=== PATIENT | male | born 1960 ===

== ENCOUNTER 2021-09-12 17:59 | Inpatient (IN) | payer OTHER ==
[~2021-09-12] VITALS: Ht 182.9 cm; Wt 61.7 kg
[2021-09-12 19:09] LABS: BASOPHILS ABSOLUTE AUTO 0.06 K/mm3 (0.00-0.23); BASOPHILS PERCENT AUTO 1 % (0-2); EOSINOPHILS ABSOLUTE AUTO 0.22 K/mm3 (0.00-0.68); EOSINOPHILS PERCENT AUTO 2 % (0-6); Hematocrit 34.2 % (37.0-53.0); Hemoglobin 11.4 g/dL (13.5-17.5); IMMATURE GRAN ABSOLUTE AUTO 0.02 K/mm3 (0.00-0.10); IMMATURE GRAN PERCENT AUTO 0 % (0-1); LYMPHOCYTES ABSOLUTE AUTO 1.96 K/mm3 (0.84-5.20); LYMPHOCYTES PERCENT AUTO 21 % (21-46); MONOCYTES ABSOLUTE AUTO 0.98 K/mm3 (0.16-1.47); MONOCYTES PERCENT AUTO 11 % (4-13); Mean Corpuscular HGB Conc 33.3 g/dL (31.5-36.5); Mean Corpuscular Volume 93 fL (80-100); Mean Platelet Volume 11.2 fL (9.1-12.4); NEUTROPHILS ABSOLUTE AUTO 6.12 K/mm3 (1.96-9.15); NEUTROPHILS PERCENT AUTO 65 % (41-73); Platelet Count 190 K/mm3 (150-400); RDW Coefficient Variation 12.7 % (11.7-14.2); RDW Standard Deviation 43.1 fL (35.1-46.3); Red Blood Cell Count 3.68 M/mm3 (4.30-5.90); White Blood Cell Count 9.36 K/mm3 (4.00-11.30)
[2021-09-12 19:37] LABS: Albumin, Blood 3.2 g/dL (3.4-5.0); Albumin/Globulin Ratio 0.9 (0.8-1.8); Bilirubin, Total 0.2 mg/dL (0.1-1.0); Bun/Creatinine Ratio 15.9 (12.0-20.0); Calcium, Blood 8.4 mg/dL (8.5-10.1); Creatinine, Blood 3.72 mg/dL (0.60-1.20); Globulin, Blood 3.4 g/dL (2.2-4.0); Potassium, Blood 4.1 mmol/L (3.5-5.5); Total Protein, Blood 6.6 g/dL (6.4-8.2)
[2021-09-12 21:19] LABS: U Amphetamine Screen DETECTED; U Barbituate Screen Not Detected; U Benzodiazapine Screen Not Detected; U Buprenorphine Screen Not Detected; U Cannabinoids Screen DETECTED; U Cocaine Screen Not Detected; U Methadone Screen Not Detected; U Methamphetamine Screen Not Detected; U Opiates Screen Not Detected; U Oxycodone Screen Not Detected; U Phencyclidine Screen Not Detected; U Propoxyphene Screen Not Detected
[2021-09-12] MEDS ORDERED: Toprol Xl50 MG PO (21:57)
[2021-09-12] MEDS ORDERED: Norvasc5 MG PO (21:57)
[2021-09-12 23:52] LABS: Influenza A, PCR NEGATIVE (NEGATIVE); Influenza B, PCR NEGATIVE (NEGATIVE); Resp Syncytial Virus, PCR NEGATIVE (NEGATIVE); SARS-Cov-2 (COVID-19) PCR, MMC NEGATIVE (NEGATIVE)
[2021-09-13 03:54] LABS: BASOPHILS ABSOLUTE AUTO 0.05 K/mm3 (0.00-0.23); BASOPHILS PERCENT AUTO 1 % (0-2); EOSINOPHILS ABSOLUTE AUTO 0.06 K/mm3 (0.00-0.68); EOSINOPHILS PERCENT AUTO 1 % (0-6); Hematocrit 35.1 % (37.0-53.0); Hemoglobin 11.7 g/dL (13.5-17.5); IMMATURE GRAN ABSOLUTE AUTO 0.03 K/mm3 (0.00-0.10); IMMATURE GRAN PERCENT AUTO 0 % (0-1); LYMPHOCYTES ABSOLUTE AUTO 0.99 K/mm3 (0.84-5.20); LYMPHOCYTES PERCENT AUTO 9 % (21-46); MONOCYTES ABSOLUTE AUTO 0.63 K/mm3 (0.16-1.47); MONOCYTES PERCENT AUTO 6 % (4-13); Mean Corpuscular HGB 30.3 pg (26.0-34.0); Mean Corpuscular HGB Conc 33.3 g/dL (31.5-36.5); Mean Corpuscular Volume 91 fL (80-100); Mean Platelet Volume 10.9 fL (9.1-12.4); NEUTROPHILS ABSOLUTE AUTO 8.88 K/mm3 (1.96-9.15); NEUTROPHILS PERCENT AUTO 83 % (41-73); Platelet Count 181 K/mm3 (150-400); RDW Coefficient Variation 12.8 % (11.7-14.2); RDW Standard Deviation 42.4 fL (35.1-46.3); Red Blood Cell Count 3.86 M/mm3 (4.30-5.90); White Blood Cell Count 10.64 K/mm3 (4.00-11.30)
[2021-09-13 04:16] LABS: Albumin, Blood 3.3 g/dL (3.4-5.0); Albumin/Globulin Ratio 0.8 (0.8-1.8); Bilirubin, Total 0.4 mg/dL (0.1-1.0); Bun/Creatinine Ratio 16.2 (12.0-20.0); Calcium, Blood 8.9 mg/dL (8.5-10.1); Creatinine, Blood 3.4 mg/dL (0.60-1.20); Globulin, Blood 4.1 g/dL (2.2-4.0); Potassium, Blood 3.7 mmol/L (3.5-5.5); Total Protein, Blood 7.4 g/dL (6.4-8.2)
--- NOTE | 2021-09-13 05:50 | NUR ---
SHIFT SUMMARY: NO ACUTE OVERNIGHT EVENT. PT ARRIVED FROM ED AROUND 0000 AND IS DROWSY BUT ALERT AND ORIENTED. HE IS ON RA AND HAD A TMAX OF 99.2 TEMPORALLY. HR HAS BEEN 80-90'S AND SBP IN 155-170. NICARDIPINE GTT INFUSING AT 5MG/ML AND NS AT 75ML/HR. HE USES THE BEDSIDE URINAL W/ GOOD OUTPUT OF CLEAR, YELLOW URINE. HE HAS REMAINED NPO AND HAD NO BM OVERNIGHT. SKIN IS WARM, DRY, AND INTACT W/ SCDS TO BLE. PLAN FOR THIS MORNING IS FOR A FOLLOW UP HEAD CT AND RENAL US. WILL REPORT TO ONCOMING RN WHEN AVAILABLE.
--- NOTE | 2021-09-13 07:57 | NUR ---
PATIENT SLEEPING, WAKES EASILY AND THEN BACK TO SLEEP, ECHO DONE, RESIDENT ROUNDED, REPORTED NO SCHEDULED MEDICATIONS ORDERED FOR HIM YET, VSS, NICARDIPINE INFUSING, TO HAVE A REPEAT CT TODAY AND RENAL US, BED ALARM ON, NO DISTRESS, CALL LIGHT WITH IN REACH
--- NOTE | 2021-09-13 08:17 | NUR ---
DR SMALL ROUNDED, CLARIFIED NEURO CHECK FREQUENCY TO EVERY 4 HOURS, RESDIENT IN WITH PATIENT
--- NOTE | 2021-09-13 09:11 | NUR ---
DR GRANGER ROUNDING ON PATIENT NOW, ECHO BEING STARTED IN ROOM, REPORTED TO DR GRANGER IF THERE WILL BE A POSSIBLE REPEAT HEAD CT, MEDICATIONS, AND CHRONIC METH USE
--- NOTE | 2021-09-13 10:31 | NUR ---
SPEECH THERAPY IN ROOM NOW
[2021-09-13 11:05] LABS: Prothrombin Time Results 10.5 Sec (9.7-11.5)
[2021-09-13 11:17] LABS: CPK Creatine Kinase 137 U/L (39-308)
--- NOTE | 2021-09-13 13:59 | NUR ---
Call placed to Dr Diceky to clarify order to DC nicardipine as pt is still receiving nicardipine at 5 mg/hr and this is maintining SBP 155-165 mmHg
[2021-09-13 14:37] LABS: Source, Urine Clean Catch
[2021-09-13 14:50] LABS: Bun/Creatinine Ratio 15.8 (12.0-20.0); Calcium, Blood 8.5 mg/dL (8.5-10.1); Creatinine, Blood 3.16 mg/dL (0.60-1.20); Potassium, Blood 3.9 mmol/L (3.5-5.5)
--- NOTE | 2021-09-13 14:50 | NUR ---
1433 DR GRANGER D/C THE NICARDIPINE, PATIENT MEDICATED WITH NORVASC 10MG EARLIER, REPORTED PATIENT ALSO TAKES METOPROLOL, BP 158/90, 97%, 79 HEART RATE, 17 RESPS, DR GRANGER TO ORDER TOPROLOL XL FROM PATIENTS HOME MEDICATION LIST
[2021-09-13 16:21] LABS: Appearance, Urine Clear (Clear); Bilirubin, Urine Neg (Neg); Blood, Urine 4+ (Neg); Glucose Qualitative, Urine Neg (Neg); Ketones, Urine Neg (Neg); Leukocyte Esterase, Urine Neg (Neg); Nitrite, Urine Neg (Neg); Protein, Urine 3+ (Neg); Specific Gravity, Urine 1.015 (1.003-1.022); Urobilinogen, Urine NORM (Normal)
[2021-09-13 16:42] LABS: Color, Urine Pale Yellow (P-Yellow)
[2021-09-13 16:43] LABS: Bacteria Rare /hpf; Squamous Epithelial Cells Rare /hpf (Few); White Blood Cells, Urine 0-2 /hpf (0-5)
--- NOTE | 2021-09-13 17:40 | NUR ---
FRIEND LIA IN ROOM VISITING
--- NOTE | 2021-09-13 18:03 | NUR ---
MAKES NEEDS KNOWN, ALERT AND OREINTED X4, FORGETFUL AT TIMES, EASILY ORIENTED, CALL LIGHT WITH IN REACH, BED ALARM ON, COARSE LS CLEARED WITH COUGH, CLEAR THROUGHOUT, RA 95%, DENEIS SOB. CHRONIC HTN, DOES NOT TAKE HOME BP MEDS, NICARDIPINE AT 5MG/HR, HEART RATE 80-110, SBP 130-211, MEDICATED WITH TOPROLOL XL AND NORVASC 10 MG,DENIES CP. PATIENT REPORTS NOT HAVING A BM FOR 10 DAYS, MEDICATED WITH MIRALAX AND SENNA. BSU CLEAR YELLOW URINE, FREQUENT AND 150 ML AT A TIME. SKIN POOR TUGOR, TENTING, VERY FRAGILE SKIN. SWALLOW PRECATIONS, CALL LIGHT WITH IN REACH, WILL RELAY TO PM RN, WCTM
--- NOTE | 2021-09-13 19:00 | NUR ---
ASSUME CARE: PT ALERT, ORIENTED, AND FOLLOWS COMMANDS. HE DENIES PAIN AND TEMP IS 99.9. HE IS ON RA AND VITALS ARE WNL W/ SBP RUNNING AROUND 150-160. NICARDIPINE INFUSING AT 5MG/HR. HE USES THE BEDSIDE URINAL W/ GOOD OUTPUT OF CLEAR YELLOW URINE. SKIN IS WARM, DRY, AND INTACT. SCDS APPLIED TO BLE. SEE SHIFT ASSESSMENT FOR DETAILS.
[2021-09-14 03:44] LABS: BASOPHILS ABSOLUTE AUTO 0.07 K/mm3 (0.00-0.23); BASOPHILS PERCENT AUTO 1 % (0-2); EOSINOPHILS ABSOLUTE AUTO 0.21 K/mm3 (0.00-0.68); EOSINOPHILS PERCENT AUTO 2 % (0-6); Hematocrit 32.6 % (37.0-53.0); Hemoglobin 10.8 g/dL (13.5-17.5); IMMATURE GRAN ABSOLUTE AUTO 0.01 K/mm3 (0.00-0.10); IMMATURE GRAN PERCENT AUTO 0 % (0-1); LYMPHOCYTES ABSOLUTE AUTO 2.16 K/mm3 (0.84-5.20); LYMPHOCYTES PERCENT AUTO 25 % (21-46); MONOCYTES ABSOLUTE AUTO 0.86 K/mm3 (0.16-1.47); MONOCYTES PERCENT AUTO 10 % (4-13); Mean Corpuscular HGB 30.5 pg (26.0-34.0); Mean Corpuscular HGB Conc 33.1 g/dL (31.5-36.5); Mean Corpuscular Volume 92 fL (80-100); Mean Platelet Volume 10.6 fL (9.1-12.4); NEUTROPHILS ABSOLUTE AUTO 5.33 K/mm3 (1.96-9.15); NEUTROPHILS PERCENT AUTO 62 % (41-73); Platelet Count 181 K/mm3 (150-400); RDW Coefficient Variation 12.9 % (11.7-14.2); Red Blood Cell Count 3.54 M/mm3 (4.30-5.90); White Blood Cell Count 8.64 K/mm3 (4.00-11.30)
[2021-09-14 04:04] LABS: Calcium, Blood 8.3 mg/dL (8.5-10.1); Creatinine, Blood 3.27 mg/dL (0.60-1.20); Phosphorus, Blood 5.2 mg/dL (2.5-4.9); Potassium, Blood 3.9 mmol/L (3.5-5.5)
--- NOTE | 2021-09-14 05:38 | NUR ---
SHIFT SUMMARY: NO ACUTE OVERNIGHT EVENTS. PT IS RESTING QUIETLY BUT IS EASILY AROUSABLE. HE HAS REMAINED ALERT AND ORIENTED W/ NO COMPLAINTS OF PAIN. ON RA HE IS SATING >95%, HR 70'S AND SBP 155-165. NICARDIPINE CURRENTLY ON STANDBY. TMAX 99.9. HE DRANK 2 ENSURE CLEARS AND HAD NO BM OVERNIGHT. SKIN IS WARM, DRY, AND INTACT. WILL REPORT TO ONCOMING RN WHEN AVAILABLE.
--- NOTE | 2021-09-14 07:23 | NUR ---
PATIENT AWAKE, COOPERATIVE, CALL LIGHT WITH IN REACH, WAITING FOR BREAKFAST, NO DISTRESS, PLEASANT TO CARE, WCTM
--- NOTE | 2021-09-14 08:40 | NUR ---
DR SMALL ROUNDED ON PATIENT, REPORTED BUN, CREATINIE, AND GFR. UNABLE TO GET A SPUTMN CULTURE YET, OFF NICARDIPINE SINCE 0530 AM, GAVE NEW ORDER COREG AND WILL RE-EVAL IN 2 HOURS FOR CHANGE OF STATUS, CALL LIGHT WITH IN REACH
--- NOTE | 2021-09-14 17:06 | NUR ---
ALERT AND ORIENTED X4, FORGETFUL AT TIMES, PLEASANT TO CARE, LS CLEAR AND DIMINISHED, CLEARS CONGESTION WITH COUGH, SATS 95% ON RA. SBP 150-190S, HTN MEDICATIONS INCREASED, NICARDIPINE GTT OFF SINCE 0530 AM, DENIES CHEST PAIN OR DIZZYNESS, DR SMALL AND DR GRANGER AWARE. BSU, CLEAR YELLOW, 150-200 AT A TIME. SKIN FRAGILE, POOR TURGOR, ATE ALL MEALS, NO SWALLOWING DIFFICULTIES. CHANGED TO M/S STATUS WITH TELE TODAY, WILL RELAY TO PM RN, [place]
[2021-09-15 04:01] LABS: BASOPHILS ABSOLUTE AUTO 0.07 K/mm3 (0.00-0.23); BASOPHILS PERCENT AUTO 1 % (0-2); EOSINOPHILS ABSOLUTE AUTO 0.28 K/mm3 (0.00-0.68); EOSINOPHILS PERCENT AUTO 3 % (0-6); Hemoglobin 10.5 g/dL (13.5-17.5); IMMATURE GRAN ABSOLUTE AUTO 0.01 K/mm3 (0.00-0.10); IMMATURE GRAN PERCENT AUTO 0 % (0-1); LYMPHOCYTES ABSOLUTE AUTO 1.99 K/mm3 (0.84-5.20); LYMPHOCYTES PERCENT AUTO 23 % (21-46); MONOCYTES ABSOLUTE AUTO 0.93 K/mm3 (0.16-1.47); MONOCYTES PERCENT AUTO 11 % (4-13); Mean Corpuscular HGB 30.8 pg (26.0-34.0); Mean Corpuscular HGB Conc 32.8 g/dL (31.5-36.5); Mean Corpuscular Volume 94 fL (80-100); Mean Platelet Volume 10.6 fL (9.1-12.4); NEUTROPHILS ABSOLUTE AUTO 5.56 K/mm3 (1.96-9.15); NEUTROPHILS PERCENT AUTO 63 % (41-73); Platelet Count 201 K/mm3 (150-400); RDW Standard Deviation 44.8 fL (35.1-46.3); Red Blood Cell Count 3.41 M/mm3 (4.30-5.90); White Blood Cell Count 8.84 K/mm3 (4.00-11.30)
[2021-09-15 04:57] LABS: Bun/Creatinine Ratio 18.9 (12.0-20.0); Calcium, Blood 8.6 mg/dL (8.5-10.1); Creatinine, Blood 3.38 mg/dL (0.60-1.20)
--- NOTE | 2021-09-15 05:07 | NUR ---
RECEIVED PT FROM ICE AROUND 0030, ALERT AND ORIENTED X4, EXPERIENCING PARANOIA RE HIS ABRUPT TRANSFER AND ANXIETY. PT SOOTHED WITH GENTLE TOUGH, CALM TONE/ENVIRONMENT AND THERAPUTIC COMMUNICATIONS. PT BENEFITS FROM SLOW STARTS AND WARNIGNS BEFORE CARE. Q4 NEURO CHECKS COMPLAYED AND NO DEFICITS NOTED. NO OTHER ACUTE CHANGES TO REPORT OVERNIGHT. BED ALRM ON. STAFF WILL CONTINUE TO MONITOR.
--- NOTE | 2021-09-15 15:50 | NUR ---
AMA: PT EXPRESSED TO THIS RN THAT HE WOULD LIKE TO LEAVE. DOCTOR HAS SPOKEN TO PATIENT IN LENGTH ABOUT NEED TO CONTINUE CARE AT THE HOSPITAL WELL THE PLAN OF CARE MOVING FORWARD. PT DOES NOT HAVE A PCP. PATIENT SPOKE WITH FRIENDS/FAMILY THAT ATTEMPTED TO CONVINCE HIM TO STAY, HOWEVER PATIENT STILL ADAMENT ABOUT LEAVING. DOCTOR AND AMUSEMENT MACHINE MECHANIC NOTIFIED. WILL DC IV'S AND TELE AND HAVE PT SIGN AMA FORM. PT ENCOURAGED TO MAKE EFFORT TO ESTABLISH PRIMARY CARE AND RETURN TO ER IF HE HAS WORSENING SYMPTOMS.
--- NOTE | 2021-09-15 16:47 | NUR ---
AMA: PT LEFT AMA AT THIS TIME WITH FRIEND. PT SCRIPTS CALLED TO PREFFERED PHARMACY AND PT GIVEN EVENING DOSE COREG PRIOR TO LEAVING. PT AGAIN ENCOURAGED TO ESTABLISH PRIMARY CARE AND TO STOP USE OF ETOH AND METH. AMA FORM SIGNED AND PT LEFT VIA WHEELCHAIR WITH BELONGINGS.
== END 2021-09-15 16:45 | disposition left against medical advice (07) | DRG 64 ==
LOC: ER 17:59 → ICUW 22:59 → ICUE 22:59 → ER 23:42 → ICUE 23:50 → SURS 09-15 00:30
PROVIDERS: Emergency Medicine; Family Medicine; Physician Assistant; ADMIT Internal Medicine
DX: I62.9 Nontraumatic intracranial hemorrhage, unspecified (principal); J69.0 Pneumonitis due to inhalation of food and vomit; N17.9 Acute kidney failure, unspecified; I16.1 Hypertensive emergency; G81.91 Hemiplegia, unspecified affecting right dominant side; F15.10 Other stimulant abuse, uncomplicated; I12.9 Hypertensive chronic kidney disease with stage 1 through stage 4 chronic kidney disease, or unspecified chronic kidney disease; N18.9 Chronic kidney disease, unspecified; Z53.29 Procedure and treatment not carried out because of patient's decision for other reasons
CPT/HCPCS: 0241U; 36415; 70450; 71045; 76770; 80048; 80053; 81001; 82550; 83735; 83880; 84100; 84145; 85025; 85610; 85730; 92610; 93005; 93010; 93306; 96365; 96375; 99285-25; A9270; G0480; J0295; J0360; J0456; J0696; J3010; J7030; J7050; J7120

== ENCOUNTER → 2023-03-16 | Outpatient (CLI) | payer OTHER ==
[~2023-03-16] MED LIST: Norvasc5 MG PO; Toprol Xl50 MG PO
[2023-03-16 16:40] LABS: Source, Urine Clean Catch
[2023-03-16 18:09] LABS: Appearance, Urine Clear (Clear); Bilirubin, Urine Neg (Neg); Blood, Urine 1+ (Neg); Color, Urine Yellow (P-Yellow); Glucose Qualitative, Urine Neg (Neg); Ketones, Urine Neg (Neg); Leukocyte Esterase, Urine Neg (Neg); Nitrite, Urine Neg (Neg); Protein, Urine 3+ (Neg); Specific Gravity, Urine 1.015 (1.003-1.022); Urobilinogen, Urine NORM (Normal)
[2023-03-16 18:15] LABS: White Blood Cells, Urine 0-2 /hpf (0-5)
[2023-03-16 18:16] LABS: Bacteria Rare /hpf; Hyaline Casts 0-2 /lpf (0-2); Red Blood Cells, Urine 0-2 /hpf (0-2); Squamous Epithelial Cells Not Seen /hpf (Few)
[2023-03-16 18:34] LABS: Protein, Urine Random 79.8 mg/dL (0.0-11.9); Protein/Creat Ratio, Ur Random 0.8
== END | disposition home or self-care (01) ==
LOC: LAB 15:30 → LAB SHORT 15:30
PROVIDERS: Hospitalist
DX: N18.4 Chronic kidney disease, stage 4 (severe) (principal)
CPT/HCPCS: 81001; 82570; 84156

== ENCOUNTER → 2024-04-04 | Outpatient (CLI) | payer OTHER ==
[2024-04-04 14:35] LABS: BASOPHILS ABSOLUTE AUTO 0.06 K/mm3 (0.00-0.23); BASOPHILS PERCENT AUTO 1 % (0-2); EOSINOPHILS ABSOLUTE AUTO 0.37 K/mm3 (0.00-0.68); EOSINOPHILS PERCENT AUTO 6 % (0-6); Hematocrit 38.1 % (37.0-53.0); Hemoglobin 12.7 g/dL (13.5-17.5); IMMATURE GRAN ABSOLUTE AUTO 0.01 K/mm3 (0.00-0.10); IMMATURE GRAN PERCENT AUTO 0 % (0-1); LYMPHOCYTES ABSOLUTE AUTO 1.19 K/mm3 (0.84-5.20); LYMPHOCYTES PERCENT AUTO 20 % (21-46); MONOCYTES ABSOLUTE AUTO 0.74 K/mm3 (0.16-1.47); MONOCYTES PERCENT AUTO 12 % (4-13); Mean Corpuscular HGB 31.3 pg (26.0-34.0); Mean Corpuscular HGB Conc 33.3 g/dL (31.5-36.5); Mean Corpuscular Volume 94 fL (80-100); NEUTROPHILS ABSOLUTE AUTO 3.59 K/mm3 (1.96-9.15); NEUTROPHILS PERCENT AUTO 60 % (41-73); Platelet Count 208 K/mm3 (150-400); RDW Standard Deviation 45.1 fL (35.1-46.3); Red Blood Cell Count 4.06 M/mm3 (4.30-5.90); White Blood Cell Count 5.96 K/mm3 (4.00-11.30)
[2024-04-04 15:18] LABS: Alanine Aminotransfer (ALT/SGP 20 U/L (12-78); Albumin, Blood 3.4 g/dL (3.4-5.0); Albumin/Globulin Ratio 1.1 (0.8-1.8); Alk Phos 42 U/L (50-136); Anion Gap 10 mmol/L (3-11); Aspartate Aminotrans (AST/SGOT 13 U/L (12-37); Bilirubin, Total 0.6 mg/dL (0.1-1.0); Blood Urea Nitrogen 54 mg/dL (8-24); Bun/Creatinine Ratio 16.8 (12.0-20.0); CHOL/HDL RATIO 2.2; CO2, Blood 23 mmol/L (21-32); Calcium, Blood 8.8 mg/dL (8.5-10.1); Chloride, Blood 104 mmol/L (98-108); Cholesterol 171 mg/dL (50-200); Creatinine, Blood 3.22 mg/dL (0.60-1.20); Globulin, Blood 3.2 g/dL (2.2-4.0); Glomerular Filtration Rate 21 (60-); Glucose, Blood 103 mg/dL (70-99); HDL Cholesterol 79 mg/dL (>39); Low Density Lipoprotein Chol 76 mg/dL (0-110); PSA, %Free 51.1 %; PSA, Free 0.608 ng/mL; Potassium, Blood 4.2 mmol/L (3.5-5.5); Sodium, Blood 133 mmol/L (136-145); Total Protein, Blood 6.6 g/dL (6.4-8.2); Triglycerides 79 mg/dL (30-160); Very Low Density Lipoprot Chol 15 mg/dL (6-32)
[2024-04-05 16:10] LABS: HEPATITIS C AB CIA INTERP Negative (Negative); HEPATITIS C ANTIBODY CIA INDEX 0.03 IV
[2024-04-05 16:47] LABS: HIV 1,2 COMBO ANTIGEN/ANTIBODY Negative (Negative)
== END ==
LOC: LAB 12:20 → LAB SHORT 12:20
PROVIDERS: Family Medicine
DX: Z00.01 Encounter for general adult medical examination with abnormal findings (principal); Z11.59 Encounter for screening for other viral diseases; Z13.6 Encounter for screening for cardiovascular disorders; R64 Cachexia
CPT/HCPCS: 80053; 80061; 84153; 84154; 85025; 86803; 87389

== ENCOUNTER 2024-05-31 08:42 | Inpatient (IN) | payer OTHER ==
[~2024-05-31] VITALS: Ht 182.9 cm; Wt 59.6 kg
[2024-05-31] MEDS ORDERED: Albuterol 2.5 MG/3 ML VIAL INH ONE (09:25)
[2024-05-31] MEDS ORDERED: LOSARTAN POTAS100 M1 PO (09:39)
[2024-05-31 09:40] LABS: BASOPHILS ABSOLUTE AUTO 0.08 K/mm3 (0.00-0.23); BASOPHILS PERCENT AUTO 1 % (0-2); EOSINOPHILS ABSOLUTE AUTO 0.71 K/mm3 (0.00-0.68); EOSINOPHILS PERCENT AUTO 10 % (0-6); Hematocrit 39.6 % (37.0-53.0); Hemoglobin 12.6 g/dL (13.5-17.5); IMMATURE GRAN ABSOLUTE AUTO 0.02 K/mm3 (0.00-0.10); IMMATURE GRAN PERCENT AUTO 0 % (0-1); LYMPHOCYTES ABSOLUTE AUTO 1.26 K/mm3 (0.84-5.20); LYMPHOCYTES PERCENT AUTO 18 % (21-46); MONOCYTES ABSOLUTE AUTO 0.59 K/mm3 (0.16-1.47); MONOCYTES PERCENT AUTO 8 % (4-13); Mean Corpuscular HGB 31.6 pg (26.0-34.0); Mean Corpuscular HGB Conc 31.8 g/dL (31.5-36.5); Mean Corpuscular Volume 99 fL (80-100); Mean Platelet Volume 9.7 fL (9.1-12.4); NEUTROPHILS ABSOLUTE AUTO 4.42 K/mm3 (1.96-9.15); NEUTROPHILS PERCENT AUTO 63 % (41-73); Platelet Count 190 K/mm3 (150-400); RDW Coefficient Variation 12.9 % (11.7-14.2); RDW Standard Deviation 47.8 fL (35.1-46.3); Red Blood Cell Count 3.99 M/mm3 (4.30-5.90); White Blood Cell Count 7.08 K/mm3 (4.00-11.30)
[2024-05-31] MEDS ORDERED: ANORO ELLIPTA1 EAC1 INH (09:40)
[2024-05-31] MEDS ORDERED: ISOSORBIDE MONO30 MG PO (09:40)
[2024-05-31] MEDS ORDERED: HYDRA25 PO (09:41)
[2024-05-31] MEDS ORDERED: ALBU90OI INH (09:41)
[2024-05-31 09:47] LABS: Base Excess Venous -3.5 mmol/L; Bicarbonate Venous 21.2 mmol/L (24.0-30.0); PCO2 Venous 50.8 mmHg (38-42); pH Blood Venous 7.27 (7.34-7.37)
[2024-05-31 10:02] LABS: Albumin, Blood 3.7 g/dL (3.4-5.0); Albumin/Globulin Ratio 1.1 (0.8-1.8); Bilirubin, Total 0.4 mg/dL (0.1-1.0); Bun/Creatinine Ratio 15.3 (12.0-20.0); Calcium, Blood 9.5 mg/dL (8.5-10.1); Creatinine, Blood 3.27 mg/dL (0.60-1.20); Globulin, Blood 3.5 g/dL (2.2-4.0); Potassium, Blood 4.3 mmol/L (3.5-5.5); Total Protein, Blood 7.2 g/dL (6.4-8.2)
[2024-05-31] MEDS ORDERED: Mag Sulfate 1 GM/D5% 100ML 100 ML IV ONE (11:00)
[2024-05-31] MEDS ORDERED: MethylPREDNISolone Sod Succ 125 MG Vial IV ONE (11:00)
[2024-05-31 11:11] LABS: Influenza A, PCR NEGATIVE (NEGATIVE); Influenza B, PCR NEGATIVE (NEGATIVE); Resp Syncytial Virus, PCR NEGATIVE (NEGATIVE); SARS-Cov-2 (COVID-19) PCR, MMC NEGATIVE (NEGATIVE)
[2024-05-31] MEDS ORDERED: NS 1,000 ML IV SCH (13:30)
[2024-05-31 13:42] LABS: Source, Urine Clean Catch
[2024-05-31 13:56] LABS: Appearance, Urine Clear (Clear); Bilirubin, Urine Neg (Neg); Blood, Urine 1+ (Neg); Color, Urine Yellow (P-Yellow); Glucose Qualitative, Urine Neg (Neg); Ketones, Urine Neg (Neg); Leukocyte Esterase, Urine Neg (Neg); Nitrite, Urine Neg (Neg); Protein, Urine 3+ (Neg); Specific Gravity, Urine 1.015 (1.003-1.022); Urobilinogen, Urine NORM (Normal)
[2024-05-31 14:16] LABS: Bacteria Rare /hpf; Squamous Epithelial Cells Rare /hpf (Few); White Blood Cells, Urine 0-2 /hpf (0-5)
[2024-05-31] MEDS ORDERED: Albuterol 2.5 MG/3 ML VIAL INH PRN (15:25)
[2024-05-31] MEDS ORDERED: Acetaminophen 325 MG TABLET PO PRN (15:35)
[2024-05-31] MEDS ORDERED: Zolpidem Tartrate 5 MG Tab PO PRN (15:35)
[2024-05-31] MEDS ORDERED: Prochlorperazine Edisylate 10 mg Vial IV PRN (15:35)
[2024-05-31] MEDS ORDERED: Misc. Inhaler INH SCH (15:45)
[2024-05-31] MEDS ORDERED: MethylPREDNISolone Sod Succ 125 MG Vial IV SCH (16:00)
[2024-05-31] MEDS ORDERED: Azithromycin 250 MG Tab PO SCH (16:00)
[2024-05-31 17:23] VITALS: BP 175/111
--- NOTE | 2024-05-31 18:24 | NUR ---
SHIFT SUMMARY- PT ADMITTED THROUGH THE ED FOR COPD EXACERBATION. PT ARRIVED CACHECTIC, TACHYPNEIC AND EXHAUSTED. HE RECIEVED BREATHING Tx IN THE ED. PT ARRIVED TO MED FLOOR ON 2L VIA NC, WITH NS RUNNING AT 100ML/HR. 2 RN SKIN CHECK SHOWS NO SKIN BREAKDOWN EVIDENT. PT STATES HE TAKES CARE OF HIS MOTHER WHO IS 90 YEARS OLD. HE ARRIVED WITH HIS WALLET WITH MONEY IN IT RN JANUARY CALLED SECURITY AND THEY PROVIDED A RECIEPT AND TOOK THE WALLET TO THE [facility]. CALLED RT AND REQUESTED THEY CAME TO SEE THE PT HIS LUNG SOUNDS ARE VERY WHEEZY T/O. THEY ARE AWARE AND WILL BE UP TO SEE THE PT SHORTLY.
[2024-05-31 19:18] VITALS: BP 148/91
[2024-06-01 02:17] VITALS: BP 184/109
[2024-06-01 05:55] LABS: Bicarbonate Venous 20.2 mmol/L (24.0-30.0); PCO2 Venous 49.9 mmHg (38-42); pH Blood Venous 7.26 (7.34-7.37)
[2024-06-01 05:56] LABS: Base Excess Venous -4.5 mmol/L
[2024-06-01 05:58] LABS: BASOPHILS ABSOLUTE AUTO 0.01 K/mm3 (0.00-0.23); BASOPHILS PERCENT AUTO 0 % (0-2); EOSINOPHILS PERCENT AUTO 0 % (0-6); Hematocrit 39.5 % (37.0-53.0); Hemoglobin 12.8 g/dL (13.5-17.5); IMMATURE GRAN ABSOLUTE AUTO 0.03 K/mm3 (0.00-0.10); IMMATURE GRAN PERCENT AUTO 1 % (0-1); LYMPHOCYTES PERCENT AUTO 6 % (21-46); MONOCYTES ABSOLUTE AUTO 0.14 K/mm3 (0.16-1.47); MONOCYTES PERCENT AUTO 2 % (4-13); Mean Corpuscular HGB 31.7 pg (26.0-34.0); Mean Corpuscular HGB Conc 32.4 g/dL (31.5-36.5); Mean Corpuscular Volume 98 fL (80-100); Mean Platelet Volume 10.1 fL (9.1-12.4); NEUTROPHILS ABSOLUTE AUTO 6.01 K/mm3 (1.96-9.15); NEUTROPHILS PERCENT AUTO 91 % (41-73); Platelet Count 190 K/mm3 (150-400); RDW Coefficient Variation 12.8 % (11.7-14.2); RDW Standard Deviation 45.7 fL (35.1-46.3); Red Blood Cell Count 4.04 M/mm3 (4.30-5.90); White Blood Cell Count 6.59 K/mm3 (4.00-11.30)
[2024-06-01] MEDS ORDERED: Metoprolol Succinate 50 MG TABCR PO SCH (06:00)
[2024-06-01] MEDS ORDERED: Losartan Potassium 50 MG Tab PO SCH (06:00)
[2024-06-01] MEDS ORDERED: HydrALAZINE HCl 25 MG Tab PO SCH (06:00)
--- NOTE | 2024-06-01 06:19 | NUR ---
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 MD ORDERED TO GIVE HIS 9AM MORNING BP MEDS EARLY. HYDRALAZINE, [place] POTASSIUM AND METOPROLOL WERE GIVEN THIS MORNING TO HELP MAINTAIN THE HIGH BP. WILL RECHECK BP. PATIENT COMPLAINED OF SOB, AND WAS PURSED LIP BREATHING, PATIENT IS ON 2L NC, USES 2-5L NC AT BASELINE, LUNGS SOUNDS ARE WHEEZY AND CRACKLY, DENIED ANY PAIN. PATIENT IS VERY WEAK AND IS ENCOURAGED TO CALL FOR ASSISTANCE BEFORE GETTING OUT OF BED. GETS UP WITH 2 PERSON ASSIST. PATIENT USES URINAL AT BED SIDE, CALLS APPROPRIATELY, BED IS AT A LOW POSITION, AND CALL LIGHT IN REACH.
[2024-06-01 06:20] LABS: Calcium, Blood 9.3 mg/dL (8.5-10.1); Creatinine, Blood 2.94 mg/dL (0.60-1.20); Percent Saturation 26.4 % (20.0-50.0); Potassium, Blood 4.7 mmol/L (3.5-5.5)
--- NOTE | 2024-06-01 06:33 | NUR ---
PATIENT ALSO HAD A CRITICAL LAB, PH IS 7.26. MD WAS NOTIFIED, NO NEW ORDER AT THIS TIME.
[2024-06-01 07:27] LABS: BASOPHILS PERCENT MAN 0 % (0-2); EOSINOPHILS PERCENT MAN 0 % (0-6); LYMPHOCYTES ABSOLUTE MAN 0.39 K/mm3 (0.84-5.20); LYMPHOCYTES PERCENT MAN 6 % (21-46); MONOCYTES PERCENT MAN 0 % (4-13); NEUTROPHILS ABSOLUTE MAN 6.19 K/mm3 (1.96-9.15); SEG NEUTROPHILS PERCENT MAN 94 % (41-73); TOTAL CELLS COUNTED 100
[2024-06-01 07:50] VITALS: BP 176/111
[2024-06-01] MEDS ORDERED: Heparin Sodium,Porcine 5,000 UNIT/0.5 ML SDV SC SCH (09:00)
[2024-06-01] MEDS ORDERED: Isosorbide Mononitrate 30 MG TABCR PO SCH (09:00)
[2024-06-01] MEDS ORDERED: AmLODIPine Besylate 5 MG Tab PO SCH (09:00)
[2024-06-01 09:15] VITALS: BP 148/108
[2024-06-01] MEDS ORDERED: Sodium Bicarbonate 650 MG Tab PO SCH (14:00)
[2024-06-01 14:13] VITALS: BP 136/95
--- NOTE | 2024-06-01 14:32 | NUR ---
PT UP TO VOID WITH 300ML OUT. BLADDER SCANNED FOR 322. MD NOTIFIED. NO NEW ORDERS AT THIS TIME
--- NOTE | 2024-06-01 17:27 | NUR ---
SHIFT SUMMARY- PT STARTED ON PO BICARB TODAY, RESPIRATORY STATUS SEEMS IMPROVED THE DAY PROGRESSED. NC O2 WAS REMOVED ON MD MORNING ROUNDS SATS ARE BETWEEN 88-92% ON ROOM AIR. PT WAS SEEN BY PHYSICAL THERAPY. HE IS NOW A 1PA TO THE BATHROOM IF HE NEEDS. PT HAS HOME O2, PER MD HE WILL NEED A NEW HOME O2 EVAL PRIOR TO DISCHARGING HOME. PT IS OBN IV STEROIDS Q8 CURRENTLY. PT LAYING IN BED, CALL LIGHT IN REACH NO S&S OF DISTRESS NOTED.
[2024-06-01 19:52] VITALS: BP 157/108
[2024-06-02 02:16] VITALS: BP 143/101
--- NOTE | 2024-06-02 03:56 | NUR ---
SHIFT SUMMARY 63 YR M ADMITTED ON 05/31/24. FULL CODE. NO ACUTE CHANGES THIS SHIFT. PT HAS HAD NO C/O PAIN OR DISCOMFORT THIS SHIFT. HE REQUESTED TO HAVE 1L O2 BY NC AT BEDTIME STATING THAT SOMETIMES IN THE MIDDLE OF THE NIGHT HE HAS A HARD TIME BREATHING. O2 SATS HAVE REMAINED WNL FOR THE ENTIRETY OF THIS SHIFT. PT IS A&O X 4 AND IS PLEASANT AND COOPERATIVE WITH CARE. CALLS APPROPRIATELY FOR ASSISTANCE WHEN NEEDED. WILL CONTINUE TO MONITOR.
[2024-06-02 05:23] LABS: Base Excess Venous -2.6 mmol/L; Bicarbonate Venous 21.4 mmol/L (24.0-30.0); pH Blood Venous 7.28 (7.34-7.37)
[2024-06-02 05:53] LABS: BASOPHILS PERCENT AUTO 0 % (0-2); EOSINOPHILS PERCENT AUTO 0 % (0-6); Hematocrit 39.5 % (37.0-53.0); Hemoglobin 12.9 g/dL (13.5-17.5); IMMATURE GRAN ABSOLUTE AUTO 0.04 K/mm3 (0.00-0.10); IMMATURE GRAN PERCENT AUTO 0 % (0-1); LYMPHOCYTES ABSOLUTE AUTO 0.45 K/mm3 (0.84-5.20); LYMPHOCYTES PERCENT AUTO 4 % (21-46); MONOCYTES ABSOLUTE AUTO 0.46 K/mm3 (0.16-1.47); MONOCYTES PERCENT AUTO 4 % (4-13); Mean Corpuscular HGB 31.8 pg (26.0-34.0); Mean Corpuscular HGB Conc 32.7 g/dL (31.5-36.5); Mean Corpuscular Volume 97 fL (80-100); Mean Platelet Volume 10.7 fL (9.1-12.4); NEUTROPHILS ABSOLUTE AUTO 9.53 K/mm3 (1.96-9.15); NEUTROPHILS PERCENT AUTO 91 % (41-73); Platelet Count 208 K/mm3 (150-400); RDW Coefficient Variation 13.1 % (11.7-14.2); RDW Standard Deviation 46.4 fL (35.1-46.3); Red Blood Cell Count 4.06 M/mm3 (4.30-5.90); White Blood Cell Count 10.48 K/mm3 (4.00-11.30)
[2024-06-02 06:32] LABS: Bun/Creatinine Ratio 19.7 (12.0-20.0); Calcium, Blood 9.3 mg/dL (8.5-10.1); Creatinine, Blood 3.45 mg/dL (0.60-1.20); Potassium, Blood 4.7 mmol/L (3.5-5.5)
[2024-06-02 07:09] VITALS: BP 164/106
[2024-06-02] MEDS ORDERED: AmLODIPine Besylate 5 MG Tab PO SCH (09:00)
[2024-06-02] MEDS ORDERED: PredniSONE 20 MG Tab PO SCH (09:00)
[2024-06-02 17:59] VITALS: BP 150/99
--- NOTE | 2024-06-02 18:26 | NUR ---
VSS, A-Ox4, denies SOB, denies any pain, ambulates with 1x assist and walker, on RA sating >90% on continous SpO2. Lungs dimished and course, heart regular, bowel sounds normative, skin intact, has baseline R-side weakness. Pt can make needs known, call barillas in hand, bed in lowest position.
[2024-06-02 19:46] VITALS: BP 142/103
--- NOTE | 2024-06-03 03:08 | NUR ---
RAILROAD PASSENGER AGENT SUMMARY BP ELEVATED, OTHERWISE VSS. ALERT AND ORIENTED. CHEERFUL AFFECT WHEN SPEAKING TO STAFF. LUNG SOUNDS DIMINISHED AND SOMEWHAT MOIST IN AREAS TO AUSCULTATION. SATS WNL. CONTINUOUS BIOX IN USE. TOLERATING MEDS WELL, NO C/O PAIN OR DISTRESS OF THIS WRITING. HAS BEEN RESTING QUIETLY WHEN OBSERVED. CALL LIGHT IN REACH, RAILS UP X 2 AND BED IN LOW POSITION FOR SAFETY. ABLE TO REPOSITION SELF IN BED WITHOUT ASSIST FOR COMFORT AND SKIN MAINTENANCE. WILL CONTINUE TO MONITOR.
[2024-06-03 04:22] VITALS: BP 147/114
[2024-06-03 06:00] LABS: Base Excess Venous -1.5 mmol/L; Bicarbonate Venous 23.2 mmol/L (24.0-30.0); PCO2 Venous 42 mmHg (38-42); pH Blood Venous 7.36 (7.34-7.37)
[2024-06-03 06:38] LABS: Bun/Creatinine Ratio 22.9 (12.0-20.0); Calcium, Blood 8.8 mg/dL (8.5-10.1); Creatinine, Blood 3.41 mg/dL (0.60-1.20); Potassium, Blood 4.5 mmol/L (3.5-5.5)
[2024-06-03 07:09] VITALS: BP 144/95
[2024-06-03] MEDS ORDERED: AMLO5 PO (12:37)
[2024-06-03] MEDS ORDERED: AZIT250 PO (12:37)
[2024-06-03] MEDS ORDERED: METO50ER PO (12:37)
[2024-06-03] MEDS ORDERED: SODBIC650 PO (12:39)
[2024-06-03] MEDS ORDERED: PRED20 PO (12:39)
--- NOTE | 2024-06-03 13:12 | NUR ---
DISCHARGE SUMMARY: PT DISCHARGED HOME TODAY. PT EDUCATED ON DISCHARGE MEDICATIONS AND INSTRUCTIONS. PT V/U. PT REPORTED HE CANNOT READ INSTRUCTIONS. THIS RN VOICED CONCERNS OF IMPORTANCE OF TAKING MEDICATIONS APPROPRIATELY. PT REPORTED HE HAS A FRIEND WHO WILL HELP HIM. OFFERED HOME HEALTH SERVICES RN WHO CAN COME AND ASSIST WITH SETTING UP MEDICATIONS. PT DECLINED TO HAVE SERVICES AND STATED HIS FRIEND WILL HELP HIM. DISCUSSED O2 REQUIREMENTS AND INSTRUCTED TO KEEP SATS BETWEEN 88-92%. PT V/U. PT ESCORTED TO POV VIA WC BY XU.
== END 2024-06-03 13:11 | disposition home or self-care (01) | DRG 189 ==
LOC: ER 08:42 → MEDS 15:32
PROVIDERS: Emergency Medicine; ADMIT Internal Medicine
DX: J96.02 Acute respiratory failure with hypercapnia (principal); E43 Unspecified severe protein-calorie malnutrition; J44.1 Chronic obstructive pulmonary disease with (acute) exacerbation; N18.4 Chronic kidney disease, stage 4 (severe); R64 Cachexia; Z68.1 Body mass index [BMI] 19.9 or less, adult; E87.29 Other acidosis; J43.9 Emphysema, unspecified; I12.9 Hypertensive chronic kidney disease with stage 1 through stage 4 chronic kidney disease, or unspecified chronic kidney disease; F15.10 Other stimulant abuse, uncomplicated; D63.1 Anemia in chronic kidney disease; F10.10 Alcohol abuse, uncomplicated; Z87.891 Personal history of nicotine dependence; Z88.8 Allergy status to other drugs, medicaments and biological substances; Z79.899 Other long term (current) drug therapy; Z86.73 Personal history of transient ischemic attack (TIA), and cerebral infarction without residual deficits
CPT/HCPCS: 0241U; 36415; 71045; 71260; 80048; 80053; 81001; 82728; 82803; 83540; 83550; 83880; 84484; 85025; 85379; 93005; 93010; 94640; 94664; 94762; 96361; 96365-59; 96375-59; 97116; 97162; 97530; 99285-25; A9270; J1644; J2919; J3475; J7030; J7512; Q9967